=== PATIENT | male | born 1955 | race Two or more races ===

== ENCOUNTER 2025-01-17 06:28 | Inpatient (IN) | payer MEDICARE, OTHER ==
[2025-01-17] VITALS (15 sets, daily range): BP systolic 118–155; BP diastolic 73–95; PULSE 58–71; RESP 16–20; TEMP 97.4–98.1; O2SAT 95–98
[~2025-01-17] VITALS: Ht 170.2 cm; Wt 96.9 kg
[~2025-01-17 06:28] MED LIST: ATOR20TA50 PO; CHOL200021 PO; FENO160T PO; METF-370 PO; TAMS0.4C39 PO
[2025-01-17] MEDS ORDERED: MIDAZOLAM HCL 2MG/2ML 2ml VIAL (1mg/ml) ONE (07:05)
[2025-01-17] MEDS ORDERED: KETAMINE 50mg/ML 1ml syringe ONE (07:05)
[2025-01-17] MEDS ORDERED: fentaNYL CITRATE 100 MCG/2 ML VL ONE (07:05)
[2025-01-17] MEDS ORDERED: PROPOFOL 10 MG/ML 20 ML IV ONE (07:06)
[2025-01-17] MEDS ORDERED: ONDANSETRON HCL 4 MG/2 ML VIAL ONE (07:06)
[2025-01-17] MEDS ORDERED: ePHEDrine SULFATE 50 MG/ML AMP ONE (07:06)
[2025-01-17] MEDS ORDERED: GLYCOPYRROLATE 0.2 MG/ML 1ML VIAL ONE (07:06)
[2025-01-17] MEDS ORDERED: diphenhdrAMINE HCL 50 MG/1 ML VL IV PRN (07:15)
[2025-01-17] MEDS: ACCU-CHEK COMFORT CURVE STRIP VI ONE (07:15)
[2025-01-17] MEDS ORDERED: ONDANSETRON HCL 4 MG/2 ML VIAL IV PRN (07:15)
[2025-01-17] MEDS: ONDANSETRON HCL 4 MG/2 ML VIAL IV ONE (07:15)
[2025-01-17] MEDS ORDERED: NALOXONE HCL 0.4 MG/ML VIAL IV PRN (07:15)
[2025-01-17] MEDS ORDERED: DexAMETHasone SOD PHOS 10MG/1ML VIAL INJ IV PRN (07:15)
[2025-01-17] MEDS ORDERED: KETOROLAC TROMETH 30 MG/ML 1ML VIAL IV PRN (07:15)
[2025-01-17] MEDS: TRANEXAMIC ACID 20 ML ONE (07:45)
[2025-01-17] MEDS: CEFEPIME 1GM/ 50ML 50 ML IV ONE (07:55)
[2025-01-17] MEDS: VANCOMYCIN HCL 1000 MG VL ONE (08:39)
[2025-01-17] MEDS: KETOROLAC TROMETH 30 MG/ML 1ML VIAL ONE (09:24)
[2025-01-17] MEDS: BUPIVACAINE W/ EPINEPH 0.5% INJ 50ML MDV IJ ONE (09:24)
[2025-01-17] MEDS: MORPHINE SULF PF 5 MG/10 ML VIAL ONE (09:24)
--- NOTE | 2025-01-17 10:01 | DVHOP2 ---
Operative Report - 2 Report Details Date: 01/17/25 Preop Diagnosis: Left knee degenerative arthritis Postop Diagnosis: Left knee degenerative arthritis Surgeon: Becky Klein MD Mainframe Architect: Sherwin MADERA Anesthesiologist: Ankur Anesthesia: Local, Regional Drains: Cari closed wound suction Implant: DonJoy and power knee size nine femur PS, size nine tibial base plate, size 14 polyethylene, size 35 patella Consent: The patient was informed of the risks and benefits of the procedure. These include but are not limited to complications of anesthesia, postoperative infection, incomplete relief of symptoms, recurrence of symptoms, damage to blood vessels, nerves and tendons, deep venous thrombosis, pulmonary embolism and possible need for repeat surgery in the future. Complications: None Estimated Blood Loss: 50 cc Fluids: See anesthesia record Findings: Varus deformity, osteophytes, denuded cartilage with eburnated bone, evidence of prior posterolateral knee surgery with sutures in posterolateral knee Indications for Surgery: Left knee degenerative arthritis with severe pain and functional impairment despite nonoperative management Name of Procedure Performed Left total knee arthroplasty Procedure Details Procedure Details: The patient was brought to the operating room and placed on the table in the supine position after being given spinal anesthetic with adequate analgesia obtained. Surgical timeout was performed verifying patient, laterality and procedure Preop patient received IV cefepime IV Ancef and IV tranexamic acid. Tourniquet was applied to the lower extremity. Extremity was elevated, exsanguinated Esmarch, and tourniquet inflated. Lower extremity was prepped and draped in sterile fashion. Midline incision was made followed by medial arthrotomy. I exposed the anterior medial and lateral tibial plateau and the anterior distal femur. Bovie and aqua mantis were used for hemostasis. I excised the anterior meniscal tissue with Bovie. I excised a portion of the fat pad with Bovie. The patella was everted and the knee flexed. I drilled the distal femur and suctioned the hole to reduce the risk of fat emboli. I inserted intramedullary guide with 5 degree valgus setting. I pinned the distal femoral cutting block anteriorly. Intramedullary concepcion was removed. Distal femoral cut was made and the block removed. I brought my attention to the tibia setting up the external cutting jig for the tibia paying attention to slope, rotation and varus valgus alignment. I set the depth and pinned the block. I used the external alignment concepcion to aid in checking alignment. Bone cut was made and bone removed releasing soft tissue attachments with Bovie. Cutting block removed. I then checked the extension gap and deemed adequate and removed the femur and tibia pins. I flexed the knee and applied the femoral sizing guide to the femur. I checked the size and external rotation setting at 90 degrees to Whitesides line and checking the epicondylar axis. I drilled the holes then removed the sizing guide and pin. I then tapped on the 4 in 1 cutting block and checked with the chula wing anteriorly to make sure that I would not notch then pinned the block. Cuts were made and the block and pins were removed. Bone was removed with curved osteotome. I used a rongeur to remove any remaining osteophytes at the femur and tibia. I then used a lamina intervention analyst to open up the back alternating between the medial and lateral side. Any remaining meniscal tissue was excised with scalpel. I used curved osteotome, curette and rongeur to remove any posterior osteophytes. In total I had 40 cc of local anesthetic which consisted of 5 mg Duramorph, 30 mg Toradol and 40 cc of 0.5% bupivacaine and I used this cocktail to inject the back saving the remainder for the rest the knee at the end of the case. I prophylactically coagulated with aqua mantis. I then tapped on the template for the box cut and pinned it. Box cut was made and bone removed. Template and pin removed. I then tapped on the femoral trial. I then brought my attention back to the tibia sizing it. I used the external alignment concepcion to make sure that rotation and alignment were good. I made a Bovie tamir at the tibial tray tamir identifying rotation for later use. I tried various tibial polytrials. [I then brought my attention to the patella. I sequentially dissected soft tissue with Bovie. I checked the thickness with caliper. I set the appropriate depth of cut on the cutting guide. I attached the cutting guide made my cut. I then sized the patella and made my drill holes. I then placed the patella trial with appropriate depth based on overall precut thickness. ] The patella tracked nicely without thumb pressure. I removed the trials. I pinned the tray and used the reamer and keel punch. The implants were brought into the field while bone preparation was started. I used both normal saline irrigation and the CarboJet to prepare the bone. Once cement was ready I applied cement to the tibial implant and tibial bone tapped it on and removed excess cement in usual fashion. In similar fashion I tapped on the femoral implant. I inserted the trial polyethylene and brought the knee into 30 degrees flexion. [I then applied the patella implant in similar fashion holding pressure with the pressurization device.] I irrigated with xperience irrigant. I injected the remainder of the local anesthetic for perioperative analgesia. Once cement cured, I checked stability and range of motion as well as patella tracking. tourniquet was released and hemostasis maintained with aqua mantis. I inserted the polyethylene and again checked stability. I used a 2 grams of vancomycin half of which was placed deep and half superficial. I repaired the extensor mechanism with the knee in fl exion with #1 Ethibond interrupted [id number]. Deep subcutaneous tissue was closed with 0 Vicryl. Superficial subcutaneous tissue was closed with 2-0 vicryl interrupted. Skin was closed with benji. I then applied the [cari closed wound suction]. Patient tolerated the procedure well and was brought to recovery room in stable condition. Condition Stable Disposition Still a Patient BECKY KLEIN MD Jan 17, 2025 10:01
[2025-01-17] MEDS ORDERED: oxyCODONE HCL 5MG TAB PO PRN (10:15)
[2025-01-17] MEDS ORDERED: ACETAMINOPHEN 325 MG TAB PO PRN (10:15)
[2025-01-17] MEDS: D5W/LACTATED RINGERS 1,000 ML IV SCH (10:15)
--- NOTE | 2025-01-17 10:56 | DVH ---
EXAM: XY L KNEE 3V XRAY HISTORY: postop COMPARISON: Radiographs dated 10/19/2024 were not made available on the PACS system for viewing. TECHNIQUE: 3 views of the left knee were performed. FINDINGS/IMPRESSION: Postoperative changes of left total knee arthroplasty without evidence of periprosthetic fracture or other complication.
[2025-01-17] MEDS ORDERED: SUGAMMADEX 200mg/2ml Vial (100MG/ML) IV ONE (11:11)
[2025-01-17] MEDS: ACETAMINOPHEN 325 MG TAB PO SCH (12:00)
[2025-01-17] MEDS: KETOROLAC TROMETH 30 MG/ML 1ML VIAL IV SCH (12:00)
[2025-01-17] MEDS: oxyCODONE HCL 5MG TAB PO PRN (15:34)
[2025-01-17] MEDS: ceFAZolin 2 GM/D5W50ml 50 ML IV SCH (15:35)
[2025-01-17] MEDS: metFORMIN HYDROCHLORIDE 500 MG TAB PO SCH (22:15)
[2025-01-17] MEDS: PREGABALIN 25 MG CAP PO SCH (22:16)
[2025-01-18] VITALS (15 sets, daily range): BP systolic 119–145; BP diastolic 75–88; PULSE 62–77; RESP 14–20; TEMP 97.8–98.2; O2SAT 96–98
[2025-01-18 07:00] LABS: Anion Gap 9 (5-15); Calcium 9.4 mg/dL (8.7-10.4); Carbon Dioxide 23 mmol/L (20-31); Chloride 105 mmol/L (98-107); Potassium 3.8 mmol/L (3.5-5.1); Sodium 137 mmol/L (136-145)
[2025-01-18 07:06] LABS: BUN/Creatinine Ratio 26.7 (10.0-20.0); Glucose 103 mg/dL (74-106)
[2025-01-18 07:07] LABS: Blood Urea Nitrogen 24 mg/dL (9-23)
[2025-01-18 07:22] LABS: Basophils # (auto) 0 10 ^3/uL (0-0.2); Basophils % (auto) 0.4 % (0.0-2.0); Eosinophils # (auto) 0.1 10 ^3/uL (0-0.8); Eosinophils % (auto) 1.5 % (0.0-7.0); Hematocrit 38.6 % (41.0-53.0); Hemoglobin 13.5 g/dL (13.5-17.5); Lymphocytes # (auto) 1.3 10 ^3/uL (0.4-5.4); Lymphocytes % (auto) 14.5 % (10.0-50.0); Mean Corpuscular Hemoglobin 33.9 pg (28.0-32.0); Mean Corpuscular Hgb Conc. 34.9 g/dL (32.0-36.0); Monocytes # (auto) 1.3 10 ^3/uL (0-1.3); Monocytes % (auto) 13.9 % (0.0-12.0); Neutrophils # (auto) 6.4 10 ^3/uL (1.6-8.6); Neutrophils % (auto) 69.7 % (37.0-80.0); Platelet Count (auto) 114 10^3/uL (140-450); Red Blood Cells 3.98 10^6/uL (4.5-5.90); Red Cell Distribution Width 12.4 % (11.8-14.3); White Blood Cell 9.2 10^3/uL (4.4-10.8)
[2025-01-18] MEDS: TAMSULOSIN HYDROCHLORIDE 0.4 MG CAP PO SCH (09:08)
[2025-01-18] MEDS: ASPirin 81 mg TAB PO SCH (09:08)
--- NOTE | 2025-01-18 10:56 | DVHDS2 ---
Discharge Summary Date of Admission Jan 17, 2025 at 10:02 Date of Discharge: Jan 18, 2025 Labs/Diagnostic Data: Laboratory Results Test 01/18/25 06:16 01/17/25 09:56 White Blood Count 9.2 10^3/uL (4.4-10.8) Red Blood Count 3.98 10^6/uL (4.5-5.90) Hemoglobin 13.5 g/dL (13.5-17.5) Hematocrit 38.6 % (41.0-53.0) Mean Corpuscular Volume 97.0 fL (80.0-100.0) Mean Corpuscular Hemoglobin 33.9 pg (28.0-32.0) Mean Corpuscular Hemoglobin Concent 34.9 g/dL (32.0-36.0) Red Cell Distribution Width 12.4 % (11.8-14.3) Platelet Count 114 10^3/uL (140-450) Mean Platelet Volume 8.8 fL (6.9-10.8) Neutrophils (%) (Auto) 69.7 % (37.0-80.0) Lymphocytes (%) (Auto) 14.5 % (10.0-50.0) Monocytes (%) (Auto) 13.9 % (0.0-12.0) Eosinophils (%) (Auto) 1.5 % (0.0-7.0) Basophils (%) (Auto) 0.4 % (0.0-2.0) Neutrophils # (Auto) 6.4 10 ^3/uL (1.6-8.6) Lymphocytes # (Auto) 1.3 10 ^3/uL (0.4-5.4) Monocytes # (Auto) 1.3 10 ^3/uL (0-1.3) Eosinophils # (Auto) 0.1 10 ^3/uL (0-0.8) Basophils # (Auto) 0 10 ^3/uL (0-0.2) Nucleated Red Blood Cells 0.0 % Sodium Level 137 mmol/L (136-145) Potassium Level 3.8 mmol/L (3.5-5.1) Chloride Level 105 mmol/L (98-107) Carbon Dioxide Level 23 mmol/L (20-31) Anion Gap 9 (5-15) Blood Urea Nitrogen 24 mg/dL (9-23) Creatinine 0.90 mg/dL (0.700-1.30) Glomerular Filtration Rate Calc 92 mL/min (>90) BUN/Creatinine Ratio 26.7 (10.0-20.0) Serum Glucose 103 mg/dL (74-106) Calcium Level 9.4 mg/dL (8.7-10.4) POC Glucose 83 mg/dl (70-106) Other Laboratory Tests 01/18/25 06:16 Brief Hx & Hospital Course: Patient was brought to the hospital yesterday to undergo a total knee arthroplasty. He tolerated the procedure well without complications and was kept overnight for postoperative observation. He has remained medically stable and denied any overnight events. Patient reports some postoperative knee pain that is being well managed with the help of pain medication and reports that he was able to get up and walk with the help of physical therapy and a walker and was able to get down to the nurse's station and back to his room with only mild pain. Patient is otherwise feeling well denying any other complaints or concerns during my evaluation and would like to go home. Condition at Discharge: Stable Final Diagnosis/Problems List Left knee degenerative arthritis Discharge Disposition: Home Discharge Instruct/Medications Diet: Regular Activity: See Comment Activity comment: Patient to be weight-bearing as tolerated with the assistance of a walker Follow Up/Referral: I instructed the patient to follow up with our office in 10-14 days for his 1st postoperative evaluation Medications: Rx sent via our outpatient EMR system Discharge Statement: "Patient was advised to return to the ER or call 911 if any headaches, dizziness, shortness of breath, chest pain, abdominal pain, bleeding, fevers, or worsening of medical condition. Patient was counseled about treatment plan, medications, possible side effects, patientverbalized understanding. All questions were answered to the best of my ability. This discharge took greater then 30 minutes in planning, reviewing documentation, counseling the patient, and discussing with other team members." ASSESSMENT ASSESSMENT Assessment Left knee degenerative arthritis DAMIR ASTUDILLO Jan 18, 2025 10:56
--- NOTE | 2025-01-18 10:58 | DVHPN2 ---
Progress Note - Dictate Date Seen: Jan 18, 2025 Medical Necessity Reason Pt with a Central, PICC or Fol: Yes The following are medically ne: Cruz Catheter Subjective Patient was lying comfortably in bed during my evaluation reports some postoperative knee pain that is being well managed with the help of pain medication. Patient reports that he was able to get up and walk with the help of physical therapy and his walker and was able to get around the nurses station and back to his bed with minimal pain. Patient is otherwise feeling well denying any other complaints or concerns during my evaluation would like to go home. vital signs Vital Sign Date Time Temp Pulse Resp B/P (MAP) Pulse Ox O2 Delivery O2 Flow Rate FiO2 01/18/25 09:00 98.0 64 18 131/81 (98) 97 98.0 01/17/25 20:00 Room Air* 0 21 Total Intake and Output 01/17/25 01/17/25 01/18/25 15:00 23:00 07:00 Intake Total 70 ml 450 ml 350 ml Output Total 350 ml 200 ml Balance 70 ml 100 ml 150 ml medications Current Medications Medications Dose Ordered Sig/Mady Route Start Time Stop Time Status Last Admin Dose Admin Diphenhydramine HCl 25 mg Q4HP PRN IV 01/17/25 07:15 Ondansetron HCl 4 mg Q4HP PRN IV 01/17/25 07:15 Metformin HCl 500 mg BID PO 01/17/25 22:00 01/17/25 22:15 500 MG Tamsulosin HCl 0.4 mg DAILY PO 01/18/25 10:00 01/18/25 09:08 0.4 MG Dextrose/Lactated Ringer's 1,000 ml @ 100 mls/hr Q10H IV 01/17/25 10:15 01/18/25 06:15 100 MLS/HR Acetaminophen 650 mg Q4HP PRN PO 01/17/25 10:15 Hold Acetaminophen 650 mg Q6HR PO 01/17/25 12:00 01/18/25 08:01 650 MG Ketorolac Tromethamine 15 mg Q6HR IV 01/17/25 12:00 01/22/25 11:59 01/18/25 08:01 15 MG Pregabalin 50 mg BID PO 01/17/25 22:00 01/18/25 09:09 50 MG Oxycodone HCl 5 mg Q4HP PRN PO 01/17/25 10:15 01/17/25 21:58 5 MG Oxycodone HCl 10 mg Q4HP PRN PO 01/17/25 10:15 Aspirin 81 mg BID PO 01/18/25 10:00 01/18/25 09:08 81 MG objective A&O x4 in no acute distress Knee range of motion grossly limited with pain on movement Padmini dressing clean, dry, intact, and maintaining suction No distal edema or calf tenderness to palpation Neurovascularly intact with cap refill less than 2 seconds laboratory and microbiology Laboratory Tests 01/18/25 06:16 Test 01/18/25 06:16 Range/Units Serum Glucose 103 74-106 mg/dL Assessment/Plan Patient to be discharged home and advised to remain weight-bearing as tolerated with the assistance of a walker and to maintain his dressing clean, dry, intact, and maintaining suction. Patient advised to follow up with our office in 10-14 days for his 1st postoperative evaluation. Rx sent via our outpatient EMR system. Cruz catheter to be removed prior to discharge. He understood and agreed. Plan discussed with: Patient, Spouse DAMIR ASTUDILLO Jan 18, 2025 10:58
--- NOTE | 2025-01-18 13:50 | DVHINCON2 ---
Date Seen: Jan 18, [address] KLEIN Family History: Patient reports no known family medical history. Allergies: Coded Allergies: NO KNOWN ALLERGIES (Unverified , 01/16/25) Home Meds Reported Medications Cholecalciferol (D3) 2,000 Unit Tab, 5000 UNIT PO DAILY, TAB 01/16/25 Atorvastatin Calcium (ATORVASTATIN CALCIUM) 20 Mg Tab, 20 MG PO DAILY, TAB 01/16/25 Metformin Hydrochloride (Metformin Hcl) 500 Mg Tab, 500 MG PO BID, TAB 01/16/25 Tamsulosin Hcl (Tamsulosin Hcl) 0.4 Mg Cap, 0.4 MG PO DAILY, CAP 01/16/25 Fenofibrate (Fenofibrate) 160 Mg Tab, 160 MG PO DAILY, TAB 01/16/25 Current Medications Current Medications Medications (Trade) Dose Ordered Sig/Mady Route PRN Reason Start Time Stop Time Status Last Admin Metformin HCl (Glucophage) 500 mg BID PO 01/17/25 22:00 01/17/25 22:15 Tamsulosin HCl (Flomax) 0.4 mg DAILY PO 01/18/25 10:00 01/18/25 09:08 Cefazolin Sodium/ Dextrose 50 ml @ 50 mls/hr Q8HR IV 01/17/25 14:00 01/17/25 22:59 DC 01/17/25 22:15 Pregabalin (Lyrica Capsule) 50 mg BID PO 01/17/25 22:00 01/18/25 09:09 Aspirin 81 mg BID PO 01/18/25 10:00 01/18/25 09:08 Vital Signs Vital Signs Date Time Temp Pulse Resp B/P (MAP) Pulse Ox O2 Delivery O2 Flow Rate FiO2 01/18/25 09:00 98.0 64 18 131/81 (98) 97 98.0 01/17/25 20:00 Room Air* 0 21 Labs/Diagnostic Data Labs Test 01/18/25 06:16 01/17/25 09:56 Range/Units White Blood Count 9.2 4.4-10.8 10^3/uL Red Blood Count 3.98 L 4.5-5.90 10^6/uL Hemoglobin 13.5 13.5-17.5 g/dL Hematocrit 38.6 L 41.0-53.0 % Mean Corpuscular Volume 97.0 80.0-100.0 fL Mean Corpuscular Hemoglobin 33.9 H 28.0-32.0 pg Mean Corpuscular Hemoglobin Concent 34.9 32.0-36.0 g/dL Red Cell Distribution Width 12.4 11.8-14.3 % Platelet Count 114 L 140-450 10^3/uL Mean Platelet Volume 8.8 6.9-10.8 fL Neutrophils (%) (Auto) 69.7 37.0-80.0 % Lymphocytes (%) (Auto) 14.5 10.0-50.0 % Monocytes (%) (Auto) 13.9 H 0.0-12.0 % Eosinophils (%) (Auto) 1.5 0.0-7.0 % Basophils (%) (Auto) 0.4 0.0-2.0 % Neutrophils # (Auto) 6.4 1.6-8.6 10 ^3/uL Lymphocytes # (Auto) 1.3 0.4-5.4 10 ^3/uL Monocytes # (Auto) 1.3 0-1.3 10 ^3/uL Eosinophils # (Auto) 0.1 0-0.8 10 ^3/uL Basophils # (Auto) 0 0-0.2 10 ^3/uL Nucleated Red Blood Cells 0.0 % Sodium Level 137 136-145 mmol/L Potassium Level 3.8 3.5-5.1 mmol/L Chloride Level 105 98-107 mmol/L Carbon Dioxide Level 23 20-31 mmol/L Anion Gap 9 5-15 Blood Urea Nitrogen 24 H 9-23 mg/dL Creatinine 0.90 0.700-1.30 mg/dL Glomerular Filtration Rate Calc 92 >90 mL/min BUN/Creatinine Ratio 26.7 H 10.0-20.0 Serum Glucose 103 74-106 mg/dL Calcium Level 9.4 8.7-10.4 mg/dL POC Glucose 83 70-106 mg/dl Assessment SEE DICTATED NOTE Plan discussed with: Patient Date of Service: Jan 18, 2025 Billing Provider: EDWIN CARRIZALES MD Common Visit Codes: [id number] INP/OBS CARE (HIGH) EDWIN CARRIZALES MD Jan 18, 2025 13:50
--- NOTE | 2025-01-18 17:30 | DVHINCON2 ---
INTERNAL MEDICINE CONSULT HISTORY OF PRESENT ILLNESS: The patient is a 69-year-old gentleman who has been admitted after he underwent surgery on the left knee for DJD of the knee. The patient at this time denies any significant pain in the knee. He has ambulated with physical therapy. No chest pain or shortness of breath. REVIEW OF SYSTEMS: Otherwise currently negative. PAST MEDICAL HISTORY: Significant for diabetes mellitus, BPH, and hyperlipidemia. MEDICATIONS: He takes fenofibrate, Lipitor, metformin, and Flomax. ALLERGIES: No known drug allergies. SOCIAL HISTORY: Denies smoking or alcohol. Lives at home with his . FAMILY HISTORY: Negative. PHYSICAL EXAMINATION: GENERAL: The patient is awake and alert. VITAL SIGNS: Temperature 98, pulse 64 per minute, blood pressure 131/81. SHEENT: Unremarkable. NECK: No JVD. LUNGS: Equal bilaterally. No added sounds. CARDIOVASCULAR: S1 and S2 is regular. No murmurs. No pedal edema. ABDOMEN: Soft. There is no organomegaly. NEUROLOGIC: Nonfocal. MUSCULOSKELETAL: Left knee is currently in a dressing. ASSESSMENT AND PLAN: * Diabetes mellitus. The patient will be on sliding scale insulin. * BPH for which he is on Flomax. * Hyperlipidemia. * Obesity. * Status post left knee surgery for degenerative joint disease of the knee for which the patient will receive physical therapy and pain medications. MD JANES Burleson/DAVIE TID: [id number] RECEIPT: [id number]
== END 2025-01-18 16:05 | disposition home or self-care (01) | DRG 470 ==
LOC: SUR 06:28 → OVERFLOW 10:02 → TELE-EAST 14:27
PROVIDERS: ADMIT Internal Medicine; ATTEND Internal Medicine
PROC: 0SRD0J9 Replacement of Left Knee Joint with Synthetic Substitute, Cemented, Open Approach (ICD-10-PCS; principal; 2025-01-17 07:34)
DX: M17.12 Unilateral primary osteoarthritis, left knee (principal); E11.9 Type 2 diabetes mellitus without complications; E66.9 Obesity, unspecified; E78.5 Hyperlipidemia, unspecified; N40.0 Benign prostatic hyperplasia without lower urinary tract symptoms; Z79.84 Long term (current) use of oral hypoglycemic drugs; Z79.899 Other long term (current) drug therapy; Z68.32 Body mass index [BMI] 32.0-32.9, adult
CPT/HCPCS: 36415; 73562; 80048; 82962; 85025; 86850; 86900; 86901; 97163; G0378; J1885; J2250; J2405; J2704